=== PATIENT | female | born 1995 | race African-American/Black ===

== ENCOUNTER 2016-09-12 03:06 | Emergency (ER) | payer OTHER ==
[~2016-09-12] VITALS: Ht 172.7 cm; Wt 65.0 kg
[2016-09-12 03:08] VITALS: BP 161/98; PULSE 78; RESP 18; TEMP 98.8; O2SAT 97
[2016-09-12] MEDS ORDERED: BIRTH CONTROL (03:42)
[2016-09-12] MEDS ORDERED: VALA1TAB PO (04:30)
[2016-09-12] MEDS ORDERED: valACYclovir HCL 500 MG TAB PO ONE (04:30)
--- NOTE | 2016-09-12 04:30 | PD ---
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 Patient states that she has lesions on her labia. She had unprotected sexual intercourse a week ago and then 2 days ago with a new partner. The lesions erupted today. She states they're burning, tender and painful. She denies any vaginal discharge, pelvic pain, dysuria, fevers. Patient has an implanted Nexplanon, she has not had a normal menstrual cycle in over a year. PFS Past Medical History Medical History: Denies Significant Hx Tetanus Vaccination: Unknown Influenza Vaccination: No ?: Not LMP: 1 YEAR AGO Past Surgical History Surgical History: No Previous Surgery Social History Alcohol Use: No Tobacco Use: No Substance Use: Yes (MARIJUANA) Allergies-Medications (Allergen,Severity, Reaction): Coded Allergies: No Known Allergies (Unverified , 09/12/16) Reported Meds & Prescriptions Reported Meds & Active Scripts Active Valacyclovir (Valacyclovir HCl) 1 Gm Tab 1,000 Mg PO TID 10 Days Reported [ Control ] Review of Systems Except as stated in HPI: all other systems reviewed are Neg Genitourinary: Positive: Other (lesions on labia) Physical Exam Narrative GENERAL: Well-nourished, well-developed patient. SKIN: Focused skin assessment warm/dry. HEAD: Normocephalic. EYES: No scleral icterus. No injection or drainage. NECK: Supple, trachea midline. No JVD or lymphadenopathy. CARDIOVASCULAR: Regular rate and rhythm without murmurs, gallops, or rubs. RESPIRATORY: Breath sounds equal bilaterally. No accessory muscle use. GASTROINTESTINAL: Abdomen soft, non-tender, nondistended. MUSCULOSKELETAL: No cyanosis, or edema. GENITOURINARY: Normal external genitalia. Clustered vesicular lesions noted on the right inner labia majora just adjacent to the vagina. Vaginal vault without blood or drainage. Cervical os was closed without drainage. No cervical motion tenderness. Uterus nontender and nonenlarged. Bilateral adnexa nontender without masses. BACK: Nontender without obvious deformity. No CVA tenderness. Data Data Last Documented VS Vital Signs Date Time Temp Pulse Resp B/P Pulse Ox O2 Delivery O2 Flow Rate FiO2 09/12/16 03:08 98.8 78 18 161/98 97 Room Air Orders Gc And Chlamydia Pcr (09/12/16 03:51) Wet Prep Profile (09/12/16 03:51) Urinalysis - C+S If Indicated (09/12/16 03:51) Herpes Simplex Virus Culture (09/12/16 03:51) Valacyclovir (Valtrex) (09/12/16 04:30) Labs Laboratory Tests Test 09/12/16 09/12/16 03:50 04:30 Clue Cells (Wet Prep) NONE SEEN Vaginal Trichomonas (Wet Prep) NONE SEEN Vaginal Yeast (Wet Prep) NONE SEEN Urine Color LIGHT-YELLOW Urine Turbidity CLEAR Urine pH 6.0 Urine Specific [place] 1.002 Urine Protein NEG mg/dL Urine Glucose (UA) NEG mg/dL Urine Ketones NEG mg/dL Urine Occult Blood NEG Urine Nitrite NEG Urine Bilirubin NEG Urine Urobilinogen LESS THAN 2.0 MG/DL Urine Leukocyte Esterase TRACE Urine WBC LESS THAN 1 /hpf Microscopic Urinalysis Comment CULT NOT INDICATED MDM Medical Decision Making Medical Screen Exam Complete: Yes Emergency Medical Condition: Yes Interpretation(s) Laboratory Tests Test 09/12/16 09/12/16 03:50 04:30 Clue Cells (Wet Prep) NONE SEEN Vaginal Trichomonas (Wet Prep) NONE SEEN Vaginal Yeast (Wet Prep) NONE SEEN Urine Color LIGHT-YELLOW Urine Turbidity CLEAR Urine pH 6.0 Urine Specific [place] 1.002 Urine Protein NEG mg/dL Urine Glucose (UA) NEG mg/dL Urine Ketones NEG mg/dL Urine Occult Blood NEG Urine Nitrite NEG Urine Bilirubin NEG Urine Urobilinogen LESS THAN 2.0 MG/DL Urine Leukocyte Esterase TRACE Urine WBC LESS THAN 1 /hpf Microscopic Urinalysis Comment CULT NOT INDICATED Vital Signs Date Time Temp Pulse Resp B/P Pulse Ox O2 Delivery O2 Flow Rate FiO2 09/12/16 03:08 98.8 78 18 161/98 97 Room Air Differential Diagnosis HSV-2 versus syphilis versus dermatitis versus STD exposure versus other Narrative Course Patient is a 21-year-old female presenting for evaluation of lesions to her inner labia. Pelvic exam was performed, herpes viral culture, wet prep, GC and chlamydia obtained. Patient will be treated with valacyclovir she was advised that herpes virus can shed even when there are no lesions present. She is encouraged to maintain safe sexual practices to avoid transmission. She is encouraged to follow-up with an [employer] REP for routine health care. She was advised that she will be notified of test results when they are resulted. She verbalized understanding of instructions. Patient is stable for discharge. Diagnosis Primary Impression: Vesicular eruption Additional Impression: Screening examination for STD (sexually transmitted disease) Referrals: [facility] 1 week [facility] Patient Instructions: General Instructions, Genital Herpes Simplex (ED), Sexually Transmitted Diseases (ED) Additional Instructions: You will be notified when test results are available The herpes virus can shed even when no lesions are present, maintain safe sexual practices to avoid transmission Follow-up with a primary doctor, ore trimmer, or at the [facility] for ongoing healthcare Return to emergency department for any new or worsening symptoms Med/Other Pt SpecificInfo: Prescription(s) given Scripts Valacyclovir 1 Gm Tab1,000 Mg PO TID 10 Days Ref 0 Prov:Shelby Pinon 09/12/16 Disposition: 01 DISCHARGE HOME Condition: Stable Shelby Pinon Sep 12, 2016 04:30
[2016-09-12 05:19] LABS: BLOOD, URINE NEG (NEG); GLUCOSE,URINE NEG (NEG); KETONE, URINE NEG (NEG); NITRITE,URINE NEG (NEG); URINE COLOR LIGHT-YELLOW (YELLW/STRAW)
[2016-09-12 05:25] LABS: COMMENT (UR) CULT NOT INDICATED; CULTURE IF INDICATED CULT NOT INDICATED
[2016-09-12 06:33] LABS: CHLAMYDIA PCR NOT DETECTED (NOT DETECT); NEISSERIA PCR NOT DETECTED (NOT DETECT)
== END 2016-09-12 05:46 | disposition home or self-care (01) ==
LOC: NEPD 03:06
DX: R23.8 Other skin changes (principal); A64 Unspecified sexually transmitted disease
CPT/HCPCS: 81001; 87210; 87255; 87491; 87591; 99283

== ENCOUNTER 2017-09-06 05:48 | Emergency (ER) | payer SELFPAY ==
[~2017-09-06 05:48] MED LIST: BIRTH CONTROL; VALA1TAB PO
[2017-09-06 05:50] VITALS: BP 113/56; PULSE 59; RESP 15; TEMP 98; O2SAT 99
[2017-09-06] MEDS ORDERED: BACT800T5 PO (06:11)
[2017-09-06] MEDS ORDERED: SULFAMETHOXAZOLE-TRIMETHOPRIM DS 800-160 MG TAB PO ONE (06:15)
--- NOTE | 2017-09-06 06:17 | PD ---
HPI Chief Complaint: Eye Problems/Injury Time Seen by Provider: 05:56 Travel History International Travel<30 days: No Contact w/Intl Traveler<30days: No Traveled to known affect area: No History of Present Illness HPI 22-year-old black female presents emergency department we will complains of pain and swelling to her left temporal region after squeezing and poking pimple on her face with a needle last night. She states that she has swelling around her left eyelid. She states that she feels that there is infection in her skin. She denies any fever chills. She has not been sick prior to this. She informs me that she does not like to take antibiotics and would like holistic treatment. PFSH Past Medical History Medical History: Denies Significant Hx Diminished Hearing: No Immunizations Current: Yes Tetanus Vaccination: > 5 Years Influenza Vaccination: No ?: Not LMP: 08/30/17 Past Surgical History Surgical History: No Previous Surgery Social History Alcohol Use: Yes Tobacco Use: No Substance Use: Yes (MARIJUANA) Allergies-Medications (Allergen,Severity, Reaction): Coded Allergies: nickel (Verified Allergy, Severe, Rash, 09/06/17) No Known Allergies (Unverified Adverse Reaction, Unknown, 09/06/17) Reported Meds & Prescriptions Reported Meds & Active Scripts Active Bactrim DS (Sulfamethoxazole-Trimethoprim) 800-160 Mg Tab 1 Tab PO BID Reported [ Control ] Review of Systems General / Constitutional: No: Fever, Chills Eyes: No: Pain, Visual changes HENT: No: Sore Throat, Neck Stiffness Cardiovascular: No: Chest Pain or Discomfort, Tachycardia Respiratory: No: Cough, Shortness of Breath Gastrointestinal: No: Nausea, Vomiting Genitourinary: No: Dysuria, Hematuria Musculoskeletal: Positive: Edema, Pain Physical Exam Narrative GENERAL: Well-developed, well-nourished in no acute distress. Nontoxic appearing. HEAD: Patient has swelling to the left temporal area as well as the left upper eyelid. This is secondary to patient's squeezing and manipulating her face. There is no obvious focal abscess. She has a small pimple which she has been picking at. This appears to be more of a local reaction to her manipulation as opposed to a progressive cellulitis or preseptal cellulitis. EYES: Pupils equal round and reactive. Extraocular motions intact. No scleral icterus. No injection or drainage. ENT: TMs clear without erythema. The external auditory canals clear. Nose: clear . Posterior pharynx is pink and moist. No tonsillar edema or exudate. Uvula midline. Airway patent. NECK: Trachea midline.Supple, nontender, moves head freely. No central bony tenderness or spasm. CARDIOVASCULAR: Regular rate and rhythm without murmurs, gallops, or rubs. RESPIRATORY: Clear to auscultation. Breath sounds equal bilaterally. No wheezes , rales, or rhonchi. GASTROINTESTINAL: Abdomen soft, non-tender, nondistended. No hepato-splenomegaly , or palpable masses. No guarding. EXTREMITIES: No clubbing, cyanosis, or edema. No joint tenderness, effusion, or edema noted. BACK: Nontender without deformity or crepitance. No flank tenderness. Data Data Last Documented VS Vital Signs Date Time Temp Pulse Resp B/P (MAP) Pulse Ox O2 Delivery O2 Flow Rate FiO2 09/06/17 05:50 98.0 59 15 113/56 (75) 99 Orders Orders Ed Discharge Order (09/06/17 06:10) Sulfamet-Trimeth Ds 800-160 Mg (Bactrim (09/06/17 06:15) MDM Medical Decision Making Medical Screen Exam Complete: Yes Emergency Medical Condition: Yes Medical Record Reviewed: Yes Differential Diagnosis MDM: High Differential diagnoses: Abscess, folliculitis, cellulitis, lymphangitis, abrasion, contact dermatitis Narrative Course Patient is given Bactrim DS p.o. She is advised to use a warm compress. This is facial abscess Diagnosis Primary Impression: Facial abscess Referrals: [facility] 3 days [facility] Dept. 3 days Patient Instructions: General Instructions Departure Forms: Tests/Procedures Additional Instructions: Rest. Elevation. keep clean and dry. Warm compresses s. Daily wound care with soap, water and Neosporin. Three Advil every 6 hours. Bactrim DS Follow-up with the health department in 1-5 days Return to the ER for any problems. Med/Other Pt SpecificInfo: Prescription(s) given Scripts Sulfamethoxazole-Trimethoprim (Bactrim DS) 800-160 Mg Tab 1 TAB PO BID for Infection, #20 TAB 0 Refills Prov: Ghazal Vega MD 09/06/17 Disposition: 01 DISCHARGE HOME Condition: Stable Keelen,Jeremy T. PA Sep 06, 2017 06:17
== END 2017-09-06 06:19 | disposition home or self-care (01) ==
LOC: NEPD 05:48
DX: L02.01 Cutaneous abscess of face (principal); F12.90 Cannabis use, unspecified, uncomplicated
CPT/HCPCS: 99283